=== PATIENT | female | born 1970 | race Caucasian/White ===

== ENCOUNTER 2016-05-18 02:37 | Emergency (ER) | payer OTHER ==
[~2016-05-18] VITALS: Ht 160 cm; Wt 117.9 kg
[~2016-05-18 02:37] MED LIST: ALBU17AE3 IH; AMOX500C2 PO; BIOT10TA PO; DOCU-143 PO; HYDR-3812 PO; HYDROCHLOROTHIAZIDE; LANS30CA PO; LORA0.5T PO; METF500T8 PO; OMEP20CA6 PO; ONDA4TAB8 PO; ONDAN4ODT SL; PRD20T PO; PREN-51 PO; RABE20TA27 PO; VIT B12 PO; VIT D PO
[2016-05-18] MEDS ORDERED: Actos (03:05)
--- NOTE | 2016-05-18 03:16 | ED Cough/URI ---
General Chief Complaint: Nasal Problems Stated Complaint: SINUS INFECTION Nursing Triage Note: Reports 4 mo hx of sinus infecton, just completed last antibiotics 1 week ago. Pt states, "I am just tired of it and want it fixed." Source: patient, spouse History of Present Illness Time seen by provider: 02:50 Initial Comments PT STATES "I'VE HAD A SINUS INFECTION SINCE OCTOBER AND I'M SICK AND TIRED OF IT " STATES SHE AND BOTH GOT SICK WITH "SINUS INFECTION AND BRONCHITIS" WHEN THEY WENT TO [place] LAST OCTOBER AND SHE HAS BEEN SICK EVER SINCE STATES SHE "HAD BRONCHITIS, THEN PNEUMONIA, THEN BRONCHITIS AGAIN AND I'VE HAD A SINUS INFECTION THE WHOLE TIME" PT STATES SHE WAS SEEN THE FIRST TIME FOR THIS PROBLEM IN JANUARY--SEEN BY FORMS BUILDER MISHEL MENDOZA AT [facility]. GIVEN RX FOR LEVAQUIN X 10 DAYS. STATES SHE DID NOT SEEK CARE AGAIN UNTIL 2 WEEKS AGO AND WAS GIVEN LEVAQUIN FOR 10 DAYS AND FINISHED IT A WEEK AGO. STATES SYMPTOMS NOT ANY BETTER. HAS NOT SOUGHT CARE AT ANY OTHER TIME, AND HAS NOT ATTEMPTED TO MAKE A FOLLOW UP APPOINTMENT WITH [facility] PT STATES NO XRAYS OR TESTS WERE DONE AT ANY TIME. PT DENIES ANY HISTORY OF RESPIRATORY PROBLEMS--YET SHE USES ALBUTEROL INHALER TWICE A DAY EVERY DAY--SHE STATES "FOR ALLERGIES". PT STATES SHE WAS ALSO PRESCRIBED BREO INHALER IN JANUARY, BUT DID NOT USE IT--STATES SHE "DIDN'T LIKE IT"-"DIDN'T KNOW HOW TO USE IT" . PT HAS ALSO BEEN PRESCRIBED ELLIPTA IN THE PAST, BUT IS NOT USING IT EITHER. PT DENIES EVER SMOKING, BUT MULTIPLE HOUSEHOLD MEMBERS ALL SMOKE. PT HAS NOT TAKEN ANY MEDICATIONS FOR HER SYMPTOMS NO FEVER AT ANY TIME DENIES CHEST PAIN OR SHORTNESS OF BREATH SYMPTOMS ARE NO DIFFERENT IN ANY WAY--IS UNCLEAR WHAT IS DIFFERENT TONIGHT THAT BROUGHT HER TO ER IN THE MIDDLE OF THE NIGHT. PCP:[facility], ALICIA MENDOZA Allergies and Home Medications Allergies Coded Allergies: acetaminophen (Verified Allergy, Unknown, HIVES, 04/09/15) aspirin (Verified Allergy, Unknown, HIVES, 04/09/15) hydrocodone (Verified Allergy, Unknown, HIVES (SEE COMMENT SECTION), ) PER [place] ([facility] [place] PATIENT TOLD DOCTOR THAT SHE HAS N/V WITH HYDROCODONE. NO MENTION OF HIVES. PATIENT AGREED WITH DR. COURTNEY TO TRY THE HYDROCODONE AGAIN. ibuprofen (Verified Allergy, Unknown, HIVES, 04/09/15) Home Medications 1 TAB PO DAILY (Reported) 1 TAB PO DAILY (Reported) (Reported) Prescribed by: CRISTOPHER ZUNIGA on 05/18/16342 Albuterol Sulfate 2.5 Mg/0.5 Ml Vial.neb #1 2.5 MG IH Q4H Prescribed by: CRISTOPHER ZUNIGA on 05/18/16336 Albuterol Sulfate 8.5 Gm Hfa.aer.ad #1 2 PUFF IH Q4H Prescribed by: CRISTOPHER ZUNIGA on 05/18/16336 Azithromycin 500 Mg Tablet #10 500 MG PO DAILY FOR INFECTION Prescribed by: CRISTOPHER ZUNIGA on 05/18/16336 Benzonatate 100 Mg Capsule #30 1-2 TAB PO TID Prescribed by: CRISTOPHER ZUNIGA on 05/18/16336 Biotin 10 Mg Tablet 10 MG PO DAILY (Reported) Budesonide 90 Mcg Aer.pow.ba #1 90 MCG IH BID Prescribed by: CRISTOPHER ZUNIGA on 05/18/16336 Cefdinir 300 Mg Capsule #30 300 MG PO BID Prescribed by: CRISTOPHER ZUNIGA on 05/18/16336 Docusate Sodium 100 Mg Capsule #60 100 MG PO BID Prescribed by: SERENITY COURTNEY on 04/09/15 09 Fluticasone Propionate 9.9 Ml [place].susp #1 2 SPRAYS NS BID Prescribed by: CRISTOPHER ZUNIGA on 05/18/16336 Hydrocodone/Acetaminophen 1 Each Tablet #30 1 TAB PO Q4H PRN PRN Prescribed by: SERENITY COURTNEY on 04/09/15 0933 Loratadine/Pseudoephedrine 1 Each Tab.er.12h #30 1 EACH PO BID Prescribed by: CRISTOPHER ZUNIGA on 05/18/16336 Lorazepam 0.5 Mg Tablet #60 0.5 MG PO PRN (Reported) Metformin HCl 500 Mg Tab.er.24h #30 500 MG PO DAILY (Reported) Methylprednisolone 4 Mg Tab.ds.pk #1 4 MG PO UD Prescribed by: CRISTOPHER ZUNIGA on 05/18/16336 Ondansetron 4 Mg Tab.rapdis #10 4 MG PO Q4H PRN PRN NAUSEA Prescribed by: WING SIMENTAL on 04/06/15 1849 Vit #76/Iron,Carb/FA 1 Each Tablet 1 EACH PO DAILY (Reported) Constitutional: no symptoms reported EENTM: nose congestion other (SINUS PAIN ) Respiratory: see HPI coughNo short of breath, wheezing Cardiovascular: no symptoms reportedNo chest pain Gastrointestinal: no symptoms reported Genitourinary: no symptoms reported Musculoskeletal: no symptoms reported Skin: no symptoms reported Psychiatric/Neurological: No Symptoms Reported Hematologic/Lymphatic: No Symptoms Reported Immunological/Allergic: no symptoms reported Past Hddbqbp-Qcajiy-Avtwhm Hx Patient Social History Alcohol Use: Denies Use Recreational Drug Use: No Smoking Status: Never a Smoker 2nd Hand Smoke Exposure: Yes (MULTIPLE HOUSEHOLD MEMBERS SMOKE) Recent Foreign Travel: No Contact w/Someone Who Travel: No Recent Infectious Disease Expo: No Recent Hopitalizations: No Seasonal Allergies Seasonal Allergies: Yes Surgeries HX Surgeries: Yes (SINUS SURGERY/POLYPS REMOVED; ) Surgeries: Appendectomy, Section, Gallbladder, Tubal Ligation Respiratory Hx Respiratory Disorders: Yes Respiratory Disorders: Chronic Bronchitis Cardiovascular Hx Cardiac Disorders: Yes Cardiac Disorders: Chronic Edema/Swelling Neurological Hx Neurological Disorders: No Reproductive System : No (no menses for 7 mo, PER PT ON 05/18/16) Hx Reproductive Disorders: No Sexually Transmitted Disease: No HIV/AIDS: No 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 Genitourinary Hx Genitourinary Disorders: No Gastrointestinal Hx Gastrointestinal Disorders: Yes Gastrointestinal Disorders: Gastroesophageal Reflux Musculoskeletal Hx Musculoskeletal Disorders: No Endocrine Hx Endocrine Disorders: Yes (OBESITY) Endocrine Disorders: Diabetes, Non-Insulin dep HEENT HX ENT Disorders: Yes (WEAR GLASSES; CHRONIC SINUSITIS) Loss of Vision: Bilateral Cancer Hx Cancer: No Psychosocial Hx Psychiatric Problems: Yes Behavioral Health Disorders: Anxiety Integumentary HX Skin/Integumentary Disorder: No Blood Transfusions Hx Blood Disorders: Yes (ANEMIA) Adverse Reaction to a Blood Tr: No Family Medical History Significant Family History: Diabetes Physical Exam Vital Signs Vital Sign - Last 12Hours 05/18/16 02:43 Temp 97.3 Pulse 80 Resp 20 B/P 144/75 Pulse Ox 96 O2 Delivery Room Air Capillary Refill : Less Than 3 Seconds General Appearance: WD/WN no apparent distress obese other (DOES NOT APPEAR ILL OR TO BE IN ANY DISCOMFORT OR DISTRESS. STRONG ODOR OF CIGARETTES.) HEENT: PERRL/EOMI TMs normal pharynx normal other (NASAL MUCOSAL EDEMA, CLEAR POST NASAL DRAINAGE. 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 nml as tested no motor/sensory deficits alert normal mood/affect oriented x 3 Skin: normal color warm/dry Progress/Results/Core Measures Results/Orders My Orders Orders-CRISTOPHER ZUNIGA DO Chest Pa/Lat (2 View) (05/18/16 03:05) Ceftriaxone Injection (Rocephin Injectio (05/18/16 03:30) Lidocaine 1% Injection (Xylocaine 1% Inj (05/18/16 03:30) Methylprednisolone Sod Succ (Solu-Medrol (05/18/16 03:30) Medications Given in ED Current Medications Medications Dose Ordered Sig/Jon Route Start Time Stop Time Status Last Admin Dose Admin Ceftriaxone Sodium 1,000 mg ONCE ONCE IM 05/18/16 03:30 05/18/16 03:31 DC 05/18/16 03:42 1,000 MG Lidocaine HCl 2.1 ml ONCE ONCE INJ 05/18/16 03:30 05/18/16 03:31 DC 05/18/16 03:43 2.1 ML Methylprednisolone Sodium Succinate 125 mg ONCE ONCE IM 05/18/16 03:30 05/18/16 03:31 DC 05/18/16 03:43 125 MG Vital Signs/I&O Vital Sign - Last 12Hours 05/18/16 05/18/16 05/18/16 05/18/16 02:43 03:42 03:43 03:43 Temp 97.3 97.3 97.3 97.3 Pulse 80 Resp 20 B/P 144/75 Pulse Ox 96 O2 Delivery Room Air 05/18/16 03:50 Temp 97.3 Pulse 80 Resp 20 Pulse Ox 96 Blood Pressure Mean: 98 Diagnostic Imaging Comments CXR--NO ACUTE PROCESS, PENDING RADIOLOGIST REVIEW Reviewed: Reviewed by Me Departure Impression Impression: Primary Impression: Sinusitis Additional Impressions: Chronic asthmatic bronchitis Second hand tobacco smoke exposure Disposition: 01 HOME, SELF-CARE Condition: Stable Departure-Patient Inst. Referrals: TERRANCE MEYER MD (PCP) Primary Care Physician MISHEL MENDOZA (Family) Primary Care Physician Patient Instructions: Acute Bronchitis, Adult (DC), Chronic Bronchitis (DC), Chronic Sinusitis, Dangers of Secondhand Smoke, Sinusitis, Adult (DC) Add. Discharge Instructions: TAKE ALL OF YOUR MEDICATIONS EXACTLY PRESCRIBED [place] FOR COUGH LOTS OF CLEAR LIQUIDS NO SMOKING IN HOME OR VEHICLE AT ANY TIME FOLLOW UP WITH [facility] IN 4-5 DAYS FOR FURTHER CARE All discharge instructions reviewed with patient and/or family. Voiced understanding. Scripts [Spacer For Mdi] No Conflict Check Prov:CRISTOPHER ZUNIGA 05/18/16 Azithromycin (Zithromax)500 Mg [id number] Mg PO DAILY #10 TAB FOR INFECTION Prov:CRISTOPHER ZUNIGA 05/18/16 Benzonatate (Tessalon Perle)100 Mg Capsule1-2 Tab PO TID Cough #30 CAP Prov:CRISTOPHER ZUNIGA 05/18/16 Budesonide (Pulmicort Flexhaler)90 Mcg Aer.pow.ba90 Mcg IH BID #1 GM Prov:CRISTOPHER ZUNIGA 05/18/16 Methylprednisolone (Medrol)4 Mg Tab.ds.pk4 Mg PO UD #1 PKG Prov:CRISTOPHER ZUNIGA DO 05/18/16 Fluticasone Propionate (Flonase Allergy Relief)9.9 Ml [place].susp2 Sprays NS BID #1 SPRAY Prov:CRISTOPHER ZUNIGA DO 05/18/16 Loratadine/Pseudoephedrine (Claritin-D 12 Hour Tablet)1 Each Tab.er.12h1 Each PO BID Congestion #30 TAB Prov:CRISTOPHER ZUNIGA DO 05/18/16 Cefdinir 300 Mg [id number] Mg PO BID FOR INFECTION #30 CAP Prov:CRISTOPHER ZUNIGA DO 05/18/16 Albuterol Sulfate (Ventolin Hfa Common Canister)8.5 Gm Hfa.aer.ad2 Puff IH Q4H BREATHING #1 GM Prov:CRISTOPHER ZUNIGA 05/18/16 Albuterol Sulfate 2.5 Mg/0.5 Ml Vial.neb2.5 Mg IH Q4H BREATHING #1 INHALER Prov:CRISTOPHER ZUNIGA DO 05/18/16 CRISTOPHER ZUNIGA DO May 18, 2016 03:16
[2016-05-18] MEDS ORDERED: cefTRIAXone 1 GM (ROCEPHIN) VIAL IM ONE (03:30)
[2016-05-18] MEDS ORDERED: methylPREDNISolone 125 MG (Solu-MEDROL) VIAL IM ONE (03:30)
[2016-05-18] MEDS ORDERED: LIDOCAINE 1% INJ 20 ML (XYLOCAINE) VIAL INJ ONE (03:30)
[2016-05-18] MEDS ORDERED: BENZ-13 PO (03:37)
[2016-05-18] MEDS ORDERED: CEFD300C3 PO (03:37)
[2016-05-18] MEDS ORDERED: ALB0.5V IH (03:37)
[2016-05-18] MEDS ORDERED: BUDE90AE2 IH (03:37)
[2016-05-18] MEDS ORDERED: RT-ALBUINH IH (03:37)
[2016-05-18] MEDS ORDERED: LORA1TAB59 PO (03:37)
[2016-05-18] MEDS ORDERED: METH4TAB PO (03:37)
[2016-05-18] MEDS ORDERED: FLUT9.9S NS (03:37)
[2016-05-18] MEDS ORDERED: AZIT500T PO (03:37)
[2016-05-18] MEDS ORDERED: [UNRECOGNIZED DRUG - OTHER] (03:43)
[2016-05-18 03:50] VITALS: BP 144/75
--- NOTE | 2016-05-18 07:06 | Diagnostic Imaging Report ---
INDICATION: Cough and congestion EXAMINATION: PA and lateral chest. Heart and mediastinum are normal. Lungs are clear. There are no effusions or pneumothoraces. IMPRESSION: Negative chest. Dictated by: Dictated on workstation # [id number]
== END 2016-05-18 03:50 | disposition home or self-care (01) ==
LOC: EDUNIT# 02:37 → ER 02:40
DX: J01.91 Acute recurrent sinusitis, unspecified (principal); J44.9 Chronic obstructive pulmonary disease, unspecified; Z77.22 Contact with and (suspected) exposure to environmental tobacco smoke (acute) (chronic)
CPT/HCPCS: 71020; 96372; 99282

== ENCOUNTER → 2016-06-02 | Outpatient (CLI) | payer OTHER ==
[~2016-06-02] MED LIST changes: +ALB0.5V IH; +AZIT500T PO; +Actos; +BENZ-13 PO; +BUDE90AE2 IH; +CEFD300C3 PO; +FLUT9.9S NS; +LORA1TAB59 PO; +METH4TAB PO; +RT-ALBUINH IH; +[UNRECOGNIZED DRUG - OTHER]
--- NOTE | 2016-06-02 15:02 | Diagnostic Imaging Report ---
PROCEDURE: CT sinuses without contrast TECHNIQUE: Multiple contiguous axial images were obtained through the sinuses without the use of intravenous contrast. Coronal and sagittal reformations were then performed. INDICATION: Sinus pressure. 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 There is moderate mural thickening throughout the maxillary sinuses as well as multiple ethmoid air cells and left sphenoid sinus. No paranasal sinus air-fluid level is noted. There is leftward bowing of the nasal septum with leftward septal spurring. IMPRESSION: Previous sinus surgery with opening of the maxillary sinuses, bilaterally. Moderate mural thickening is seen within the maxillary sinuses, several ethmoid air cells and the left sphenoid sinus compatible with probable chronic sinusitis. Dictated by: Dictated on workstation # [id number]
== END ==
LOC: RAD 14:31
PROVIDERS: ATTEND Nurse Practitioner Community Health
DX: J32.9 Chronic sinusitis, unspecified (principal)
CPT/HCPCS: 70486

== ENCOUNTER → 2017-01-31 | Outpatient (CLI) | payer OTHER ==
[~2017-01-31] MED LIST changes: +RT-ALBUTEROL SULF 2.5 MG/3 ML PRE-MIX VIAL IH ONE
== END ==
LOC: RT 09:35
PROVIDERS: ATTEND Nurse Practitioner Family
DX: J45.909 Unspecified asthma, uncomplicated (principal); J40 Bronchitis, not specified as acute or chronic; R06.00 Dyspnea, unspecified
CPT/HCPCS: 94060; 94640; 94726; 94729